=== PATIENT | male | born 1935 | race Hispanic/Latino ===

== ENCOUNTER 2019-02-07 07:57 | Inpatient (IN) | payer MEDICARE, BC ==
[2019-01-31 13:13] VITALS: BP 106/73
[2019-01-31 13:22] LABS: BASOPHIL % 0.2 % (0.0-0.2); EOSINOPHIL # 0.1 10^3/uL (0.0-0.2); EOSINOPHIL % 2.3 % (0.0-5.0); LYMPHOCYTES # 1.5 10^3/uL (1.0-4.8); LYMPHOCYTES % 26.9 % (24.0-44.0); MEAN CELL HGB 31.9 pg (26-34); MEAN CELL HGB CONCENTRATION 34.2 g/dL (33-37); MEAN CORP VOLUME 93.4 fL (78-100); MONOCYTES # 0.3 10^3/uL (0.3-0.8); MONOCYTES % 5.4 % (5.0-12.0); NEUTROPHIL # 3.6 10^3/uL (1.8-7.7); RED CELL DISTRIBUTION WIDTH 14.5 % (11.5-14.5); WHITE BLOOD CELL 5.6 10^3/uL (4.5-11.0)
[2019-01-31 13:32] LABS: CALCIUM 8.8 mg/dL (8.4-10.5); CARBON DIOXIDE 27.7 mmol/L (20.0-32)
--- NOTE | 2019-01-31 13:49 | PCM.EKG ---
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
[2019-02-07] VITALS (10 sets, daily range): BP systolic 100–152; BP diastolic 56–88
[~2019-02-07] VITALS: Ht 167.6 cm; Wt 81.6 kg
[2019-02-07] MEDS: LACTATED RINGERS 1,000 ML IV SCH ×3 (06:57→22:42)
[~2019-02-07 07:57] MED LIST: AMINOACETIC ACID IR ONE; ASPI-484 PO; ATEN25TA PO; DIPRIVAN IV ONE; LEVAQUIN 100 ML IV ONE; LIDOCAINE 2% VIAL ONE; MARCAINE SPINAL AMPUL IJ ONE; SODIUM CHLORIDE IR ONE; SUBLIMAZE ONE
[2019-02-07] MEDS ORDERED: AMINOACETIC ACID IR ONE (08:30)
[2019-02-07] MEDS: TENORMIN PO SCH (09:00)
[2019-02-07] MEDS ORDERED: DEMEROL IV PRN (09:00)
[2019-02-07] MEDS ORDERED: PHENERGAN IV PRN (09:00)
[2019-02-07] MEDS ORDERED: NORCO 7.5MG PO PRN (09:00)
[2019-02-07] MEDS ORDERED: LACTATED RINGERS 1,000 ML IV SCH (09:00)
[2019-02-07] MEDS ORDERED: WATER ONE (09:18)
[2019-02-07] MEDS: NORCO 5MG PO PRN (09:21)
[2019-02-07] MEDS ORDERED: BENADRYL IV PRN (09:30)
[2019-02-07] MEDS ORDERED: ZOFRAN IV PRN (09:30)
[2019-02-07] MEDS ORDERED: SUBLIMAZE IV PRN (09:30)
--- NOTE | 2019-02-07 10:08 | NUR ---
Report Patient arrived to room 339 postop on his bed. Awake, alert and orientedX3. CBI at a faster rate as reported to this RN from Cyn RN, per DR. Mcneill for more than usual blood with surgery. Catheter attached to right thigh. Output pink, without noted clots.
--- NOTE | 2019-02-07 10:39 | OPH ---
DATE OF SURGERY: 02/07/2019 PREOPERATIVE DIAGNOSIS: Obstructive prostatic hyperplasia. FINAL DIAGNOSIS: Obstructive prostatic hyperplasia. PROCEDURE: TUR of the prostate. DESCRIPTION OF PROCEDURE: The patient was brought to the cystoscopy room and was put in supine position on the cystoscopy table. First, the patient was put in a sitting position on the table and the low spinal anesthesia was then performed successfully. After this was done, the patient was put back in the supine position. After 10 minutes, the patient was placed in the lithotomy position and the genitalia was then prepped and draped aseptically in the usual manner. First, the urethra was dilated with curved sounds up to 28 Kenyan and then a 26-Kenyan resectoscope sheath was then inserted per urethra up to the bladder. With the use of the laser resectoscope with the 30-degree angle lens, the posterior urethra was visualized. Verumontanum was identified. There was a trilobar prostatic hyperplasia, which was obstructed. The bladder was inspected. There was some trabeculation noted 1+. No tumor, no calculi, no ulcerations seen. Both ureteral orifices were identified. TUR of the prostate was then started at the bladder neck between 5 and 7 and this was carried proximal to the verumontanum. The lateral lobes were resected next followed by the roof. After all bleeders were promptly coagulated during the course of the resection. After this, the bladder was irrigated and all the tissue tips were then evacuated. The urine was clear. The procedure was again inspected and there was a good dissection noted after the prostatic capsule. There was no bleeding noted. The bladder was again irrigated. Return flow was clear. The procedure was terminated. Instrument was removed and Fletcher catheter was inserted. The patient was then transferred to the recovery room in stable condition. Thiago Mcneill MD DR: ROSEY/kiara JOB# [id number]
[2019-02-07] MEDS ORDERED: NS 3000ML IRR IR ONE (17:53)
--- NOTE | 2019-02-07 18:17 | NUR ---
output Patient's CBI continues. Urine has been Clear, [place] in color. No complaint of pain or discomfort. DR. Mcneill to the bedside Irrigated nguyen.
[2019-02-08] VITALS (8 sets, daily range): BP systolic 112–134; BP diastolic 58–75
[2019-02-08 04:53] LABS: HEMOGLOBIN 14.9 g/dL (13.9-16.3); MEAN CELL HGB 32.2 pg (26-34); MEAN PLATELET VOLUME 9.8 fL (7.8-11.0); RED CELL DISTRIBUTION WIDTH 14.2 % (11.5-14.5); WHITE BLOOD CELL 5.3 10^3/uL (4.5-11.0)
[2019-02-08 05:07] LABS: CARBON DIOXIDE 26.3 mmol/L (20.0-32)
--- NOTE | 2019-02-08 07:18 | NUR ---
Report Assumed care of patient after report received from Klaudia HOWELL at shift change. CBI into [address] nguyen. Urine luis daniel, clear.
--- NOTE | 2019-02-08 09:23 | PNH ---
DATE: 02/08/2019 SUBJECTIVE: This is postop day #1. The patient is afebrile. Urine is clear. Bladder was irrigated. No clots were removed. PLAN: We will discontinue the IV and change the IV to Hep-Lock today and to get him out of bed. OBJECTIVE: VITAL SIGNS: Stable. The patient is doing good. Thiago Mcneill MD DR: ROSEY/kiara JOB# [id number]
[2019-02-08] MEDS: TENORMIN PO SCH (09:33)
--- NOTE | 2019-02-08 09:33 | NUR ---
Chance CBI discontinued at [address] Mcneill. Capped. IVF discontinued. Addendum: 02/08/19 at 1002 by LYNDA Montes De OcaM/S LYNDA activity Patient up to ambulate in the alanis with dasha RN after CBI port plugged.
--- NOTE | 2019-02-08 10:35 | NUR ---
Post-op day 1 follow up for SAB. Pt v/s stable. Pt sitting in chair at bedside with family member present. Pt states he has ambulated in the hallway today. Pt states no numbness or residual effects from SAB. SAB site is [facility]. Pt states no questions or concerns.
[2019-02-08] MEDS: NORCO 5MG PO PRN (10:53)
--- NOTE | 2019-02-08 11:34 | NUR ---
DISCHARGE PLAN CM VISITED WITH PATIENT AND SPOUSE REGARDING PATIENTS D/C PLAN. PATIENT LIVES AT HOME WITH HIS SPOUSE AND IS INDEPENDENT OF ADLS. PATIENT STATES HE DOES NOT USE DME IN THE HOME BUT HAS ACCESS TO A WALKER AND W/C. PATIENT WORKS EVERYDAY A [employer] IN [facility]. HIS PCP IS NORMAN SHRESTHA IN [place]. PATIENT IS FINANCIALLY ABLE TO PAY FOR HIS MEDICATIONS. DC GOAL IS FOR PATIENT TO DISCHARGE HOME WITH SPOUSE AND CONTINUE ROUTINE CARE THERE. REFUSAL CHOICE LETTER SIGNED AND PLACED IN CHART. NO FURTHER NEEDS NOTED AT THIS TIME.
--- NOTE | 2019-02-08 11:47 | NUR ---
Activity Patient up in chair for 2 hours. Back to bed, pericare, linens changed, washed hands and face.
[2019-02-08] MEDS: LACTATED RINGERS 1,000 ML IV SCH ×2 (13:00→23:00)
[2019-02-08] MEDS: URISPAS PO SCH (15:28)
[2019-02-08] MEDS ORDERED: NS 250ML 250 ML IV ONE (17:38)
[2019-02-08] MEDS: LEVAQUIN 100 ML IV SCH (17:47)
--- NOTE | 2019-02-08 19:52 | NUR ---
Report Change of shift report given to Klaudia HOWELL. Patient has had no problems with output since CBI Discontinued.
[2019-02-09 04:00] VITALS: BP 125/65
[2019-02-09 08:30] VITALS: BP 127/79
[2019-02-09] MEDS: URISPAS PO SCH (08:32)
[2019-02-09] MEDS: TENORMIN PO SCH (08:32)
[2019-02-09] MEDS: LACTATED RINGERS 1,000 ML IV SCH (10:48)
[2019-02-09] MEDS: LEVAQUIN 100 ML IV SCH (11:30)
[2019-02-09 12:59] VITALS: BP 127/79
== END 2019-02-09 16:00 | disposition home or self-care (01) | DRG 713 ==
LOC: MS 07:57
PROVIDERS: ADMIT Urology; ATTEND Urology
PROC: 0VB08ZZ Excision of Prostate, Via Natural or Artificial Opening Endoscopic (ICD-10-PCS; principal; 2019-02-07 07:54)
DX: N40.1 Benign prostatic hyperplasia with lower urinary tract symptoms (principal); N13.8 Other obstructive and reflux uropathy; M19.90 Unspecified osteoarthritis, unspecified site; I10 Essential (primary) hypertension; Z88.0 Allergy status to penicillin
CPT/HCPCS: 36415; 80048; 80051; 85025; 85027; 85610; 85730; 88305; 93005; A4217; G0378; J1956; J2001; J3010; J3490; J7050; J7120